=== PATIENT | male | born 1975 | race Two or more races ===

== ENCOUNTER 2017-07-14 16:51 | Inpatient (IN) | payer OTHER ==
[2017-07-14 18:29] VITALS: BMI 24.3
--- NOTE | 2017-07-14 19:11 | HP ---
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 Loss, Unexplained wgt Loss EENT: reports: No Symptoms Reported Respiratory: reports: No Symptoms reported Cardiac: reports: No Symptoms Reported GI: reports: No Symptoms Reported : reports: No Symptoms Reported Musculoskeletal: reports: Joint Pain (RIGHT HIP = NEURONTIN) Integumentary: reports: Change in Color (INNER ELBOW IV HEROIN) Neuro: reports: Seizure (SINCE CHILD CHAUDHRY) Endocrine: reports: No Symptoms Reported Hematology: reports: No Symptoms Reported Psychiatric: reports: Judgement Intact, Orientated x3, Depressed Other Systems: Reviewed and Negative Patient History - Patient Medical History Hx Anemia: No Hx Asthma: No Hx Chronic Obstructive Pulmonary Disease (COPD): No Hx Cancer: No Hx Cardiac Disorders: No Hx Congestive Heart Failure: No Hx Hypertension: No Hx Hypercholesterolemia: No Hx Pacemaker: No HX Cerebrovascular Accident: No Hx Seizures: Yes Hx Dementia: No Hx Diabetes: No Hx Gastrointestinal Disorders: No Hx Liver Disease: No Hx Genitourinary Disorders: No Hx Sexually Transmitted Disorders: No Hx Renal Disease (ESRD): No Hx Thyroid Disease: No Hx Human Immunodeficiency Virus (HIV): No (tested 4 months ago) Hx Hepatitis C: Yes (since 1997) Hx Depression: Yes Hx Suicide Attempt: No Hx Bipolar Disorder: No Hx Schizophrenia: No - Patient Surgical History Past Surgical History: No Hx Neurologic Surgery: No Hx Cataract Extraction: No Hx Cardiac Surgery: No Hx Lung Surgery: No Hx Breast Surgery: No Hx Breast Biopsy: No Hx Abdominal Surgery: No Hx Appendectomy: No Hx Cholecystectomy: No Hx Genitourinary Surgery: No Hx Orthopedic Surgery: No - PPD History Previous Implant?: Yes Documented Results: Negative w/proof Implanted On Prior [facility] Admission?: No Date: 03/04/14 PPD to be Administered?: Yes - Smoking Cessation Smoking history: Current every day smoker Have you smoked in the past 12 months: Yes Aproximately how many cigarettes per day: 5 Hx Chewing Tobacco Use: No Initiated information on smoking cessation: Yes 'Breaking Loose' booklet given: 07/14/17 - Substance & Tx. History Hx Alcohol Use: No Hx Substance Use: Yes Substance Use Type: Heroin Hx Substance Use Treatment: Yes ([facility] 06/2017) - Substances Abused Heroin Route: Injection Frequency: Daily Amount used: 8 BAGS Age of first use: 15 Date of Last Use: 06/30/17 Family Disease History - Family Disease History Family Disease History: Diabetes: Grandparent (grandmother), Heart Disease: Mother (; alcohol), CA: Father (dec; pancreatic ca; alcohol), Sister ( ), Other: Father, Mother, Sister Admission Physical Exam [facility] - Vital Signs Vital Signs: Vital Signs - 24 hr 07/14/17 18:24 Temperature 99.9 F H Pulse Rate 103 H Respiratory 18 Rate Blood Pressure 140/98 - Physical General Appearance: Yes: No Apparent Distress, Appropriately Dressed, Thin HEENTM: Yes: Hearing grossly Normal, Normal ENT Inspection, Normocephalic, Normal Voice Respiratory: Yes: Chest Non-Tender, Lungs Clear, Normal Breath Sounds, No Respiratory Distress, No Accessory Muscle Use Neck: Yes: Supple, Trachea in good position Breast: Yes: Breasts Symetrical Cardiology: Yes: Regular Rhythm, S1, S2, Tachycardia Abdominal: Yes: Normal Bowel Sounds, Non Tender, Soft Genitourinary: Yes: Within Normal Limits Back: Yes: Normal Inspection Musculoskeletal: Yes: Muscle Pain (RIGHT HIP) Extremities: Yes: Normal Inspection (IV HEROIN BOTH ELBOWS), Normal Range of Motion, Non-Tender Neurological: Yes: Fully Oriented, Alert, Motor Strength 5/5, Normal Mood/Affect , Normal Response Integumentary: Yes: Warm, Track Kennedy Lymphatic: Yes: Within Normal Limits - Diagnostic (1) Opioid dependence with withdrawal Current Visit: Yes Status: Acute (2) Encounter for monitoring Suboxone maintenance therapy Current Visit: Yes Status: Chronic Comment: 8/2 MG BID LAST DOSE 07/14/17 AM (3) Weight loss Current Visit: Yes Status: Acute (4) Hepatitis C carrier Current Visit: Yes Status: Resolved (5) Seizure Current Visit: Yes Status: Acute (6) Bipolar II disorder Current Visit: Yes Status: Suspected Cleared for Admission [facility] - Detox or Rehab [facility] Level of Care: Observation Bed Detox Regimen/Protocol: Not Applicable Claeared for Rehab Admission: Yes [facility] Breath Alcohol Content Breath Alcohol Content: 0 Urine Drug Screen - Results Drug Screen Negative: Yes
[2017-07-14] MEDS ORDERED: ACETAMINOPHEN 325 MG TABLET (FP) PO PRN (19:15)
[2017-07-14] MEDS ORDERED: MAG HYDROX/AL HYDROX/SIMETH 30 ML UNIT-DOSE CUP PO PRN (19:15)
[2017-07-14] MEDS ORDERED: IBUPROFEN 400 MG TABLET (FP) PO PRN (19:15)
[2017-07-14] MEDS ORDERED: LOPERAMIDE HCL 2 MG CAPSULE PO PRN (19:15)
[2017-07-14] MEDS ORDERED: P-EPHED 60MG/TRIPROLIDI 2.5MG TABLET PO PRN (19:15)
[2017-07-14] MEDS ORDERED: NICOTINE 14 MG/24 HOURS TOPICAL PATCH TD PRN (19:15)
[2017-07-14] MEDS ORDERED: MAGNESIUM CITRATE 300 ML BOTTLE PO PRN (19:15)
[2017-07-14] MEDS ORDERED: MENTHOL/PHENOL 1 EACH UD MM PRN (19:15)
[2017-07-14] MEDS ORDERED: NICOTINE POLACRILEX 2 MG GUM BUC PRN (19:15)
[2017-07-14] MEDS ORDERED: diphenhydrAMINE HCL 50 MG CAPSULE PO PRN (19:15)
[2017-07-14] MEDS ORDERED: guaiFENesin/D-METHORPHAN HB 10 ML UNIT-DOSE CUPS PO PRN (19:15)
[2017-07-14] MEDS ORDERED: MAGNESIUM HYDROX 2400MG/30ML ORAL SUSPENSION 30 ML CUP PO PRN (19:15)
[2017-07-14] MEDS ORDERED: TUBERCULIN PPD 5 TU/0.1ML VIAL ID ONE (20:13)
[2017-07-14] MEDS: THIAMINE HCL 100 MG TABLET (FP) PO SCH (21:44)
[2017-07-14] MEDS: DIVALPROEX SODIUM 500 MG TABLET E.C. PO SCH (21:44)
[2017-07-14] MEDS: GABAPENTIN 300 MG CAPSULE (FP) PO SCH (21:44)
[2017-07-14] MEDS: BUPRENORPHINE/NALOXONE 8 MG/2 MG FILM PACKET SL SCH (21:47)
[2017-07-14 23:22] LABS: URINE APPEARANCE CLEAR; URINE BILIRUBIN NEGATIVE (NEGATIVE); URINE BLOOD NEGATIVE (NEGATIVE); URINE COLOR LTYELLOW; URINE GLUCOSE (UA) NEGATIVE (NEGATIVE); URINE KETONE NEGATIVE (NEGATIVE); URINE NITRITE NEGATIVE (NEGATIVE); URINE PROTEIN NEGATIVE (NEGATIVE); URINE UROBILINOGEN NEGATIVE mg/dL (0.2-1.0)
[2017-07-15] MEDS: GABAPENTIN 300 MG CAPSULE (FP) PO SCH ×3 (06:30→21:50)
[2017-07-15] MEDS: DIVALPROEX SODIUM 500 MG TABLET E.C. PO SCH ×3 (06:40→21:50)
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
[2017-07-15 09:48] LABS: MCH 31.5 pg (25.7-33.7); MCHC 33.8 g/dl (32.0-35.9); MEAN CELL VOLUME 93.2 fl (80-96); MEAN PLT VOLUME 8.1 fl (7.5-11.1); PLATELET COUNT 170 K/MM3 (134-434); RDW 13.4 % (11.9-15.9); WHITE BLOOD COUNT 4.1 K/mm3 (4.0-10.0)
--- NOTE | 2017-07-15 09:56 | EKG ---
Test Reason : Blood Pressure : / mmHG Vent. Rate : 093 BPM Atrial Rate : 093 BPM P-R Int : 158 ms QRS Dur : 104 ms QT Int : 356 ms P-R-T Axes : 034 009 030 degrees QTc Int : 442 ms NORMAL SINUS RHYTHM INCOMPLETE RIGHT BUNDLE BRANCH BLOCK NO PREVIOUS ECGS AVAILABLE Confirmed by JOE ROTH MD ([id number]) on 07/15/2017 9:56:18 AM Referred By: Grace Josue Confirmed By:JOE ROTH MD
[2017-07-15 10:31] LABS: ALBUMIN 3.7 g/dl (3.4-5.0)
[2017-07-15 10:34] LABS: ALK PHOS 46 U/L (45-117); ANION GAP 5 (8-16); BILIRUBIN,TOTAL 0.4 mg/dL (0.2-1.0); CO2 34 mmol/L (21-32); CREATININE 1.1 mg/dL (0.7-1.3); GLUCOSE,RANDOM 99 mg/dL (74-106); SGOT/AST 63 U/L (15-37); SGPT/ALT 66 U/L (12-78); TOT PROT 8.1 g/dl (6.4-8.2)
[2017-07-15 10:40] LABS: URINE LEUK ESTERASE Negative (NEGATIVE)
[2017-07-15] MEDS: PRENATAL VITAMINS W/ FOLIC ACID TABLET (FP) PO SCH (10:41)
[2017-07-15] MEDS: BUPRENORPHINE/NALOXONE 8 MG/2 MG FILM PACKET SL SCH ×2 (10:41→21:51)
[2017-07-15] MEDS: QUEtiapine FUMARATE 100 MG TABLET (FP) PO SCH (17:25)
[2017-07-15] MEDS: THIAMINE HCL 100 MG TABLET (FP) PO SCH (21:50)
[2017-07-15] MEDS: QUEtiapine FUMARATE 300 MG TABLET PO SCH (21:50)
[2017-07-15] MEDS: busPIRone HCL 5 MG TABLET PO SCH (21:50)
[2017-07-16] MEDS: busPIRone HCL 5 MG TABLET PO SCH ×3 (06:34→21:40)
[2017-07-16] MEDS: DIVALPROEX SODIUM 500 MG TABLET E.C. PO SCH ×3 (06:35→21:40)
[2017-07-16] MEDS: GABAPENTIN 300 MG CAPSULE (FP) PO SCH ×3 (06:35→21:40)
[2017-07-16] MEDS: QUEtiapine FUMARATE 100 MG TABLET (FP) PO SCH ×2 (10:14→17:56)
[2017-07-16] MEDS: BUPRENORPHINE/NALOXONE 8 MG/2 MG FILM PACKET SL SCH ×2 (10:14→21:41)
[2017-07-16] MEDS: PRENATAL VITAMINS W/ FOLIC ACID TABLET (FP) PO SCH (10:14)
[2017-07-16] MEDS: QUEtiapine FUMARATE 300 MG TABLET PO SCH (21:40)
[2017-07-16] MEDS: THIAMINE HCL 100 MG TABLET (FP) PO SCH (21:40)
[2017-07-17] MEDS: GABAPENTIN 300 MG CAPSULE (FP) PO SCH ×3 (06:37→21:41)
[2017-07-17] MEDS: busPIRone HCL 5 MG TABLET PO SCH ×3 (06:37→21:41)
[2017-07-17] MEDS: DIVALPROEX SODIUM 500 MG TABLET E.C. PO SCH ×3 (06:37→21:41)
[2017-07-17] MEDS: PRENATAL VITAMINS W/ FOLIC ACID TABLET (FP) PO SCH (10:36)
[2017-07-17] MEDS: BUPRENORPHINE/NALOXONE 8 MG/2 MG FILM PACKET SL SCH ×2 (10:36→21:42)
[2017-07-17] MEDS: QUEtiapine FUMARATE 100 MG TABLET (FP) PO SCH ×2 (10:36→17:47)
[2017-07-17] MEDS: QUEtiapine FUMARATE 300 MG TABLET PO SCH (21:41)
[2017-07-17] MEDS: THIAMINE HCL 100 MG TABLET (FP) PO SCH (21:41)
[2017-07-18] MEDS: DIVALPROEX SODIUM 500 MG TABLET E.C. PO SCH ×3 (06:17→21:30)
[2017-07-18] MEDS: GABAPENTIN 300 MG CAPSULE (FP) PO SCH ×3 (06:17→21:30)
[2017-07-18] MEDS: busPIRone HCL 5 MG TABLET PO SCH ×3 (06:17→21:30)
[2017-07-18] MEDS: PRENATAL VITAMINS W/ FOLIC ACID TABLET (FP) PO SCH (10:26)
[2017-07-18] MEDS: QUEtiapine FUMARATE 100 MG TABLET (FP) PO SCH ×2 (10:26→17:33)
[2017-07-18] MEDS: BUPRENORPHINE/NALOXONE 8 MG/2 MG FILM PACKET SL SCH ×2 (10:26→21:31)
[2017-07-18] MEDS: THIAMINE HCL 100 MG TABLET (FP) PO SCH (21:30)
[2017-07-18] MEDS: QUEtiapine FUMARATE 300 MG TABLET PO SCH (21:30)
[2017-07-19] MEDS: busPIRone HCL 5 MG TABLET PO SCH ×3 (06:22→21:35)
[2017-07-19] MEDS: DIVALPROEX SODIUM 500 MG TABLET E.C. PO SCH ×3 (06:22→21:35)
[2017-07-19] MEDS: GABAPENTIN 300 MG CAPSULE (FP) PO SCH ×3 (06:22→21:35)
[2017-07-19] MEDS: BUPRENORPHINE/NALOXONE 8 MG/2 MG FILM PACKET SL SCH ×2 (10:31→21:35)
[2017-07-19] MEDS: QUEtiapine FUMARATE 100 MG TABLET (FP) PO SCH ×2 (10:31→17:06)
[2017-07-19] MEDS: PRENATAL VITAMINS W/ FOLIC ACID TABLET (FP) PO SCH (10:31)
[2017-07-19] MEDS: QUEtiapine FUMARATE 300 MG TABLET PO SCH (21:35)
[2017-07-19] MEDS: THIAMINE HCL 100 MG TABLET (FP) PO SCH (21:36)
[2017-07-20] MEDS: busPIRone HCL 5 MG TABLET PO SCH ×3 (06:32→21:45)
[2017-07-20] MEDS: DIVALPROEX SODIUM 500 MG TABLET E.C. PO SCH ×3 (06:32→21:45)
[2017-07-20] MEDS: GABAPENTIN 300 MG CAPSULE (FP) PO SCH ×3 (06:32→21:45)
[2017-07-20] MEDS: QUEtiapine FUMARATE 100 MG TABLET (FP) PO SCH ×2 (10:23→18:31)
[2017-07-20] MEDS: PRENATAL VITAMINS W/ FOLIC ACID TABLET (FP) PO SCH (10:24)
[2017-07-20] MEDS ORDERED: BUPRENORPHINE/NALOXONE 8 MG/2 MG FILM PACKET SL ONE (10:49)
[2017-07-20] MEDS: THIAMINE HCL 100 MG TABLET (FP) PO SCH (21:45)
[2017-07-20] MEDS: QUEtiapine FUMARATE 300 MG TABLET PO SCH (21:46)
[2017-07-20] MEDS: BUPRENORPHINE/NALOXONE 8 MG/2 MG FILM PACKET SL SCH (21:46)
[2017-07-21] MEDS: GABAPENTIN 300 MG CAPSULE (FP) PO SCH ×3 (06:11→21:28)
[2017-07-21] MEDS: DIVALPROEX SODIUM 500 MG TABLET E.C. PO SCH ×3 (06:11→21:29)
[2017-07-21] MEDS: busPIRone HCL 5 MG TABLET PO SCH ×3 (06:11→21:28)
[2017-07-21] MEDS: QUEtiapine FUMARATE 100 MG TABLET (FP) PO SCH ×2 (10:17→17:22)
[2017-07-21] MEDS: PRENATAL VITAMINS W/ FOLIC ACID TABLET (FP) PO SCH (10:17)
[2017-07-21] MEDS: BUPRENORPHINE/NALOXONE 8 MG/2 MG FILM PACKET SL SCH ×2 (10:17→21:29)
--- NOTE | 2017-07-21 11:04 | PN ---
[facility] Progress Note Note: chronic hip pain neurontin not helping will start flexeril
[2017-07-21] MEDS: CYCLOBENZAPRINE HCL 5 MG TABLET PO SCH ×2 (14:05→21:28)
[2017-07-21] MEDS: THIAMINE HCL 100 MG TABLET (FP) PO SCH (21:28)
[2017-07-21] MEDS: QUEtiapine FUMARATE 300 MG TABLET PO SCH (21:29)
[2017-07-22] MEDS: CYCLOBENZAPRINE HCL 5 MG TABLET PO SCH ×3 (06:35→21:36)
[2017-07-22] MEDS: busPIRone HCL 5 MG TABLET PO SCH ×3 (06:35→21:36)
[2017-07-22] MEDS: DIVALPROEX SODIUM 500 MG TABLET E.C. PO SCH ×3 (06:35→21:36)
[2017-07-22] MEDS: GABAPENTIN 300 MG CAPSULE (FP) PO SCH ×3 (06:35→21:36)
[2017-07-22] MEDS: QUEtiapine FUMARATE 100 MG TABLET (FP) PO SCH ×2 (10:04→17:02)
[2017-07-22] MEDS: PRENATAL VITAMINS W/ FOLIC ACID TABLET (FP) PO SCH (10:06)
[2017-07-22] MEDS: BUPRENORPHINE/NALOXONE 8 MG/2 MG FILM PACKET SL SCH ×2 (10:06→21:36)
[2017-07-22] MEDS: QUEtiapine FUMARATE 300 MG TABLET PO SCH (21:36)
[2017-07-22] MEDS: THIAMINE HCL 100 MG TABLET (FP) PO SCH (21:36)
[2017-07-23] MEDS: DIVALPROEX SODIUM 500 MG TABLET E.C. PO SCH ×3 (06:30→22:01)
[2017-07-23] MEDS: busPIRone HCL 5 MG TABLET PO SCH ×3 (06:46→22:01)
[2017-07-23] MEDS: GABAPENTIN 300 MG CAPSULE (FP) PO SCH ×3 (06:46→22:01)
[2017-07-23] MEDS: CYCLOBENZAPRINE HCL 5 MG TABLET PO SCH ×3 (06:46→22:01)
[2017-07-23] MEDS: BUPRENORPHINE/NALOXONE 8 MG/2 MG FILM PACKET SL SCH ×2 (10:25→22:02)
[2017-07-23] MEDS: QUEtiapine FUMARATE 100 MG TABLET (FP) PO SCH ×2 (10:25→17:49)
[2017-07-23] MEDS: PRENATAL VITAMINS W/ FOLIC ACID TABLET (FP) PO SCH (10:25)
[2017-07-23] MEDS: QUEtiapine FUMARATE 300 MG TABLET PO SCH (22:01)
[2017-07-23] MEDS: THIAMINE HCL 100 MG TABLET (FP) PO SCH (22:01)
[2017-07-24] MEDS: CYCLOBENZAPRINE HCL 5 MG TABLET PO SCH ×3 (07:00→21:42)
[2017-07-24] MEDS: GABAPENTIN 300 MG CAPSULE (FP) PO SCH ×3 (07:00→21:42)
[2017-07-24] MEDS: DIVALPROEX SODIUM 500 MG TABLET E.C. PO SCH ×3 (07:00→21:42)
[2017-07-24] MEDS: busPIRone HCL 5 MG TABLET PO SCH ×3 (07:01→21:42)
[2017-07-24] MEDS: QUEtiapine FUMARATE 100 MG TABLET (FP) PO SCH ×2 (10:16→17:24)
[2017-07-24] MEDS: PRENATAL VITAMINS W/ FOLIC ACID TABLET (FP) PO SCH (10:16)
[2017-07-24] MEDS: BUPRENORPHINE/NALOXONE 8 MG/2 MG FILM PACKET SL SCH ×2 (10:16→21:42)
[2017-07-24] MEDS: THIAMINE HCL 100 MG TABLET (FP) PO SCH (21:42)
[2017-07-24] MEDS: QUEtiapine FUMARATE 300 MG TABLET PO SCH (21:42)
[2017-07-25] MEDS: DIVALPROEX SODIUM 500 MG TABLET E.C. PO SCH ×3 (06:29→21:48)
[2017-07-25] MEDS: busPIRone HCL 5 MG TABLET PO SCH ×3 (06:29→21:48)
[2017-07-25] MEDS: GABAPENTIN 300 MG CAPSULE (FP) PO SCH ×3 (06:29→21:48)
[2017-07-25] MEDS: CYCLOBENZAPRINE HCL 5 MG TABLET PO SCH ×3 (06:29→21:49)
[2017-07-25] MEDS: QUEtiapine FUMARATE 100 MG TABLET (FP) PO SCH ×2 (10:24→16:59)
[2017-07-25] MEDS: BUPRENORPHINE/NALOXONE 8 MG/2 MG FILM PACKET SL SCH ×2 (10:24→21:49)
[2017-07-25] MEDS: PRENATAL VITAMINS W/ FOLIC ACID TABLET (FP) PO SCH (10:24)
--- NOTE | 2017-07-25 11:10 | PN ---
Psychiatric Progress Note Vital Signs: Vital Signs Period Temp Pulse Resp BP Sys/Mendez Pulse Ox Last 24 Hr 98.1 F 84 18-18 121/79 Date of Session: 07/25/17 Chief Complaint:: " I am too sleepy during the day.I want less seroquel." HPI: Day 8 of rehabilitation treatment for this 42 y/o male addressing alcohol + heroin dependence co-morbid with Bipolar-II Disorder.Uneneventful hospital course except for compaint of daytime sedation.Patient approached this rewriter with the request for a revision of his medication regimen (wants to cancel 10 AM dose of seroquel and stop buspar). ROS: Ambulatory,slow.Feels drowsy and sluggish.Normal vitals. Current Medications: Active Medications Generic Name Dose Route Start Last Admin Trade Name Freq PRN Reason Stop Dose Admin Acetaminophen 650 mg 07/14/17 19:15 Tylenol - PO Q4H PRN PAIN Al Hydroxide/Mg Hydroxide 30 ml 07/14/17 19:15 Mylanta Oral Suspension - PO Q6H PRN DYSPEPSIA Buprenorphine/Naloxone 1 each 07/20/17 22:00 07/25/17 10:24 Suboxone 8mg/2mg Sl Film - SL 07/27/17 21:59 1 each BID@1000,2200 INRGID Administration Buspirone HCl 5 mg 07/15/17 22:00 07/25/17 06:29 Buspar - PO 5 mg TID INGRID Administration Cyclobenzaprine HCl 5 mg 07/21/17 14:00 07/25/17 06:29 Cyclobenzaprine Hcl PO 5 mg TID INGRID Administration Diphenhydramine HCl 50 mg 07/14/17 19:15 Benadryl - PO HSMR1 PRN INSOMNIA Divalproex Sodium 500 mg 07/14/17 22:00 07/25/17 06:29 Depakote - PO 500 mg TID INGRID Administration Eucalyptus/Menthol/Phenol/Sorbitol 1 each 07/14/17 19:15 Cepastat Lozenge - MM Q4H PRN SORE THROAT Gabapentin 300 mg 07/14/17 22:00 07/25/17 06:29 Neurontin - PO 300 mg TID INGRID Administration Guaifenesin 10 ml 07/14/17 19:15 Robitussin Dm - PO Q6H PRN COUGH Ibuprofen 400 mg 07/14/17 19:15 Motrin - PO Q6H PRN SEVERE PAIN Loperamide HCl 4 mg 07/14/17 19:15 Imodium - PO Q6H PRN DIARRHEA Magnesium Citrate 300 ml 07/14/17 19:15 Citroma - PO Q48H PRN CONSTIPATION Magnesium Hydroxide 30 ml 07/14/17 19:15 Milk Of Magnesia - PO DAILY PRN CONSTIPATION Nicotine 14 mg 07/14/17 19:15 Nicoderm Patch - TD DAILY PRN WOUND CARE Nicotine Polacrilex 2 mg 07/14/17 19:15 Nicorette Gum - BUC Q2H PRN NICOTINE REPLACEMENT RX Multivit/Folic Acid/Iron 1 tab 07/15/17 10:00 07/25/17 10:24 Vitamins ([facility]) - PO 1 tab DAILY INGRID Administration Pseudoephedrine/Triprolidine 1 combo 07/14/17 19:15 Actifed - PO TID PRN NASAL CONGESTION Quetiapine Fumarate 300 mg 07/15/17 22:00 07/24/17 21:42 Seroquel - PO 300 mg HS INGRID Administration Quetiapine Fumarate 100 mg 07/15/17 18:00 07/25/17 10:24 Seroquel - PO 100 mg BID@1000,1800 INGRID Administration Thiamine HCl 100 mg 07/14/17 22:00 07/24/17 21:42 Vitamin B1 - PO 100 mg HS INGRID Administration Medication(s) Change(s): Yes.At patient's request,seroquel is reduced to 100 mg daily @ 6 PM + 300 mg po hs and buspar is discontinued. 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 Total face to face time:: 35 Mental Status Exam - Mental Status Exam Alert and Oriented to: Time, Place, Person Cognitive Function: Good Patient Appearance: Well Groomed Mood: Apprehensive Affect: Appropriate, Normal Range Patient Behavior: Sedated (mild sedation) Speech Pattern: Clear, Appropriate Voice Loudness: Normal Thought Process: Intact, Goal Oriented Thought Disorder: Not Present Hallucinations: Denies Suicidal Ideation: Denies Homicidal Ideation: Denies Insight/Judgement: Fair Sleep: Well (daytime sleepiness) Appetite: Good Muscle strength/Tone: Normal Gait/Station: Normal Psychiatric Treatment Plan - Problem List (1) Heroin dependence Current Visit: Yes (2) Bipolar II disorder Current Visit: Yes (3) Seizure Current Visit: Yes
[2017-07-25] MEDS: THIAMINE HCL 100 MG TABLET (FP) PO SCH (21:48)
[2017-07-25] MEDS: QUEtiapine FUMARATE 300 MG TABLET PO SCH (21:49)
[2017-07-26] MEDS: DIVALPROEX SODIUM 500 MG TABLET E.C. PO SCH ×3 (06:29→21:35)
[2017-07-26] MEDS: CYCLOBENZAPRINE HCL 5 MG TABLET PO SCH ×3 (06:29→21:36)
[2017-07-26] MEDS: busPIRone HCL 5 MG TABLET PO SCH ×3 (06:29→21:35)
[2017-07-26] MEDS: GABAPENTIN 300 MG CAPSULE (FP) PO SCH ×3 (06:29→21:35)
[2017-07-26] MEDS: QUEtiapine FUMARATE 100 MG TABLET (FP) PO SCH ×2 (10:21→17:55)
[2017-07-26] MEDS: PRENATAL VITAMINS W/ FOLIC ACID TABLET (FP) PO SCH (10:21)
[2017-07-26] MEDS: BUPRENORPHINE/NALOXONE 8 MG/2 MG FILM PACKET SL SCH ×2 (10:21→21:35)
[2017-07-26] MEDS: THIAMINE HCL 100 MG TABLET (FP) PO SCH (21:34)
[2017-07-26] MEDS: QUEtiapine FUMARATE 300 MG TABLET PO SCH (21:35)
[2017-07-27] MEDS: DIVALPROEX SODIUM 500 MG TABLET E.C. PO SCH ×3 (06:46→21:43)
[2017-07-27] MEDS: GABAPENTIN 300 MG CAPSULE (FP) PO SCH ×3 (06:46→21:43)
[2017-07-27] MEDS: busPIRone HCL 5 MG TABLET PO SCH ×3 (06:46→21:43)
[2017-07-27] MEDS: CYCLOBENZAPRINE HCL 5 MG TABLET PO SCH ×3 (06:46→21:43)
[2017-07-27] MEDS: BUPRENORPHINE/NALOXONE 8 MG/2 MG FILM PACKET SL SCH (10:29)
[2017-07-27] MEDS: QUEtiapine FUMARATE 100 MG TABLET (FP) PO SCH ×2 (10:29→17:05)
[2017-07-27] MEDS: PRENATAL VITAMINS W/ FOLIC ACID TABLET (FP) PO SCH (10:29)
--- NOTE | 2017-07-27 15:00 | PN ---
Psychiatric Progress Note Vital Signs: Vital Signs Period Temp Pulse Resp BP Sys/Mendez Pulse Ox Last 24 Hr 97.5 F 80 16-18 122/78 Date of Session: 07/27/17 Chief Complaint:: Discharge visit HPI: Patient addressed Opioid,Cocaine and Cannabis dependence comorbid with Bipolar disorder. ROS: Significant for weight loss. Current Medications: Active Medications Generic Name Dose Route Start Last Admin Trade Name Freq PRN Reason Stop Dose Admin Acetaminophen 650 mg 07/14/17 19:15 Tylenol - PO Q4H PRN PAIN Al Hydroxide/Mg Hydroxide 30 ml 07/14/17 19:15 Mylanta Oral Suspension - PO Q6H PRN DYSPEPSIA Buprenorphine/Naloxone 1 each 07/20/17 22:00 07/27/17 10:29 Suboxone 8mg/2mg Sl Film - SL 07/27/17 21:59 1 each BID@1000,2200 INGRID Administration Buspirone HCl 5 mg 07/15/17 22:00 07/27/17 14:31 Buspar - PO Not Given TID INGRID Cyclobenzaprine HCl 5 mg 07/21/17 14:00 07/27/17 14:31 Cyclobenzaprine Hcl PO 5 mg TID INGRID Administration Diphenhydramine HCl 50 mg 07/14/17 19:15 Benadryl - PO HSMR1 PRN INSOMNIA Divalproex Sodium 500 mg 07/14/17 22:00 07/27/17 14:31 Depakote - PO 500 mg TID INGRID Administration Eucalyptus/Menthol/Phenol/Sorbitol 1 each 07/14/17 19:15 Cepastat Lozenge - MM Q4H PRN SORE THROAT Gabapentin 300 mg 07/14/17 22:00 07/27/17 14:31 Neurontin - PO 300 mg TID INGRID Administration Guaifenesin 10 ml 07/14/17 19:15 Robitussin Dm - PO Q6H PRN COUGH Ibuprofen 400 mg 07/14/17 19:15 Motrin - PO Q6H PRN SEVERE PAIN Loperamide HCl 4 mg 07/14/17 19:15 Imodium - PO Q6H PRN DIARRHEA Magnesium Citrate 300 ml 07/14/17 19:15 Citroma - PO Q48H PRN CONSTIPATION Magnesium Hydroxide 30 ml 07/14/17 19:15 Milk Of Magnesia - PO DAILY PRN CONSTIPATION Nicotine 14 mg 10/19/17 19:15 Nicoderm Patch - TD DAILY PRN WOUND CARE Nicotine Polacrilex 2 mg 07/14/17 19:15 Nicorette Gum - BUC Q2H PRN NICOTINE REPLACEMENT RX Multivit/Folic Acid/Iron 1 tab 07/15/17 10:00 07/27/17 10:29 Vitamins ([facility]) - PO 1 tab DAILY INGRID Administration Pseudoephedrine/Triprolidine 1 combo 07/14/17 19:15 Actifed - PO TID PRN NASAL CONGESTION Quetiapine Fumarate 300 mg 07/15/17 22:00 07/26/17 21:35 Seroquel - PO 300 mg HS INGRID Administration Quetiapine Fumarate 100 mg 07/15/17 18:00 07/27/17 10:29 Seroquel - PO 100 mg BID@1000,1800 INGRID Administration Thiamine HCl 100 mg 07/14/17 22:00 07/26/17 21:34 Vitamin B1 - PO 100 mg HS INGRID Administration Current Side Effect: No Lab tests ordered: No Lab tests reviewed: Yes Provider note:: Patient will complete this program tomorrow 07/28/17.He has met his treatment goals and will continue to address his issues on outpatiernt basis at NA meetings in [facility].Patient reports current medications:Buspar 5 mg po tid,depakote 500 mg po tid,Seroquel 300 mg po hs and Neurontin 300 mg po tid help to cope with mood swings,depression,anxiety.scripts for 30 days provided. patient identifies areas of difficulties,behaviors which contributes for relapse.Supportive therpay prvided focusing on relapse prevention. PAtient is stable for discharge tomorrow 07/28/17. Total face to face time:: 30 Mental Status Exam - Mental Status Exam Alert and Oriented to: Time, Place, Person Cognitive Function: Grossly Intact Patient Appearance: Well Groomed Mood: Hopeful, Euthymic Affect: Appropriate, Mood Congruent Patient Behavior: Cooperative Speech Pattern: Clear Voice Loudness: Normal Thought Process: Goal Oriented Thought Disorder: Not Present Hallucinations: Denies Suicidal Ideation: Denies Homicidal Ideation: Denies Insight/Judgement: Fair Sleep: Fair Appetite: Good Muscle strength/Tone: Normal Gait/Station: Normal Psychiatric Treatment Plan - Problem List (4) Encounter for monitoring Suboxone maintenance therapy Comment: 8/2 MG BID LAST DOSE 07/14/17 AM
[2017-07-27] MEDS: THIAMINE HCL 100 MG TABLET (FP) PO SCH (21:42)
[2017-07-27] MEDS: QUEtiapine FUMARATE 300 MG TABLET PO SCH (21:43)
[2017-07-27] MEDS ORDERED: BUPRENORPHINE/NALOXONE 8 MG/2 MG FILM PACKET SL ONE (22:25)
[2017-07-28] MEDS: busPIRone HCL 5 MG TABLET PO SCH (06:19)
[2017-07-28] MEDS: GABAPENTIN 300 MG CAPSULE (FP) PO SCH (06:19)
[2017-07-28] MEDS: DIVALPROEX SODIUM 500 MG TABLET E.C. PO SCH (06:19)
[2017-07-28] MEDS: CYCLOBENZAPRINE HCL 5 MG TABLET PO SCH (06:19)
[2017-07-28 06:43] VITALS: BP 126/73; PULSE 83; TEMP 97.6
[2017-07-28] MEDS ORDERED: BUPRENORPHINE/NALOXONE 8 MG/2 MG FILM PACKET SL SCH (10:00)
[2017-07-28] MEDS: QUEtiapine FUMARATE 100 MG TABLET (FP) PO SCH (10:22)
[2017-07-28] MEDS: PRENATAL VITAMINS W/ FOLIC ACID TABLET (FP) PO SCH (10:22)
--- NOTE | 2017-07-28 10:26 | PN ---
Psychiatric Progress Note Vital Signs: Vital Signs Period Temp Pulse Resp BP Sys/Mendez Pulse Ox Last 24 Hr 97.6 F 83 16-18 126/73 Date of Session: 07/28/17 Chief Complaint:: Discharge Note HPI: Patient addressing Opoid Dependence comorbid with Opoid Dependence on Agonist Therapy, Nicotine Dependence, ARUN and Bipolar II Disorder ROS: Hep C Current Medications: Active Medications Generic Name Dose Route Start Last Admin Trade Name Freq PRN Reason Stop Dose Admin Acetaminophen 650 mg 07/14/17 19:15 Tylenol - PO Q4H PRN PAIN Al Hydroxide/Mg Hydroxide 30 ml 07/14/17 19:15 Mylanta Oral Suspension - PO Q6H PRN DYSPEPSIA Buprenorphine/Naloxone 1 each 07/28/17 10:00 Suboxone 8mg/2mg Sl Film - SL BID INGRID Buspirone HCl 5 mg 07/15/17 22:00 07/28/17 06:19 Buspar - PO Not Given TID INGRID Cyclobenzaprine HCl 5 mg 07/21/17 14:00 07/28/17 06:19 Cyclobenzaprine Hcl PO 5 mg TID INGRID Administration Diphenhydramine HCl 50 mg 07/14/17 19:15 Benadryl - PO HSMR1 PRN INSOMNIA Divalproex Sodium 500 mg 07/14/17 22:00 07/28/17 06:19 Depakote - PO 500 mg TID INGRID Administration Eucalyptus/Menthol/Phenol/Sorbitol 1 each 07/14/17 19:15 Cepastat Lozenge - MM Q4H PRN SORE THROAT Gabapentin 300 mg 07/14/17 22:00 07/28/17 06:19 Neurontin - PO 300 mg TID INGRID Administration Guaifenesin 10 ml 07/14/17 19:15 Robitussin Dm - PO Q6H PRN COUGH Ibuprofen 400 mg 07/14/17 19:15 Motrin - PO Q6H PRN SEVERE PAIN Loperamide HCl 4 mg 07/14/17 19:15 Imodium - PO Q6H PRN DIARRHEA Magnesium Citrate 300 ml 07/14/17 19:15 Citroma - PO Q48H PRN CONSTIPATION Magnesium Hydroxide 30 ml 07/14/17 19:15 Milk Of Magnesia - PO DAILY PRN CONSTIPATION Nicotine 14 mg 07/14/17 19:15 Nicoderm Patch - TD DAILY PRN WOUND CARE Nicotine Polacrilex 2 mg 07/14/17 19:15 Nicorette Gum - BUC Q2H PRN NICOTINE REPLACEMENT RX Multivit/Folic Acid/Iron 1 tab 07/15/17 10:00 07/27/17 10:29 Vitamins ([facility]) - PO 1 tab DAILY INGRID Administration Pseudoephedrine/Triprolidine 1 combo 07/14/17 19:15 Actifed - PO TID PRN NASAL CONGESTION Quetiapine Fumarate 300 mg 07/15/17 22:00 07/27/17 21:43 Seroquel - PO 300 mg HS INGRID Administration Quetiapine Fumarate 100 mg 07/15/17 18:00 07/27/17 17:05 Seroquel - PO Not Given BID@1000,1800 INGRID Thiamine HCl 100 mg 07/14/17 22:00 07/27/17 21:42 Vitamin B1 - PO 100 mg HS INGRID Administration Current Side Effect: No Lab tests ordered: Yes Lab tests reviewed: Yes Provider note:: Patient has completed this program today. He has met his treatment goals and will continue to address his issues in outpatient treatment at [facility]. Told program writer that from his participation in this program, he has learned the importance of establishing a sober support network in order to maintain abstinence. He responded well to Buspar 5 mg po TID and Seroquel 100 mg BID & 300 mg HS. Scripts for 30 days supply of these medications are electronically transmitted to [facility] at Total face to face time:: 35
== END 2017-07-28 10:45 | disposition home or self-care (01) | DRG 772 ==
LOC: YASAS 16:51 → Y5N 19:29
PROVIDERS: ADMIT Psychiatry & Neurology Psychiatry; ATTEND Psychiatry & Neurology Psychiatry
PROC: HZ42ZZZ Group Counseling for Substance Abuse Treatment, Cognitive-Behavioral (ICD-10-PCS; principal; 2017-07-14)
DX: F11.23 Opioid dependence with withdrawal (principal); F41.1 Generalized anxiety disorder; F31.81 Bipolar II disorder; B18.2 Chronic viral hepatitis C; G40.909 Epilepsy, unspecified, not intractable, without status epilepticus; R63.4 Abnormal weight loss; Z68.24 Body mass index [BMI] 24.0-24.9, adult
CPT/HCPCS: 36415; 80053; 80164; 81003; 85027; 86593; 93005; 93010